=== PATIENT | female | born 1990 | race African-American/Black ===

== ENCOUNTER 2018-12-31 19:53 | Emergency (ER) | payer MEDICAID, OTHER ==
[~2018-12-31] VITALS: Ht 167.6 cm; Wt 87.0 kg
[2018-12-31 22:05] VITALS: BP 148/76
== END 2018-12-31 22:06 | disposition home or self-care (01) ==
LOC: ER 19:53
DX: K02.9 Dental caries, unspecified (principal)
CPT/HCPCS: 99283

== ENCOUNTER 2020-04-27 05:21 | Emergency (ER) | payer MEDICAID ==
[~2020-04-27] VITALS: Ht 165.1 cm; Wt 109.0 kg
[2020-04-27] MEDS ORDERED: KETOROLAC 60MG/2ML VIAL IM STA (05:33)
[2020-04-27] MEDS ORDERED: AMOXICILLIN/POTASSIUM CLAVULANATE 875/125MG TAB PO ONE (05:45)
[2020-04-27 06:47] VITALS: BP 110/64
== END 2020-04-27 06:56 | disposition home or self-care (01) ==
LOC: ER 05:27
DX: K04.7 Periapical abscess without sinus (principal)
CPT/HCPCS: 81025; 96372; 99283; J1885